=== PATIENT | female | born 1945 | race Caucasian/White ===

== ENCOUNTER → 2021-10-01 16:00 | Outpatient (CLI) | payer MEDICARE, OTHER, SELFPAY ==
[2021-10-01 19:41] LABS: Basophils # 0.1 K/mm3 (0-0.2); Basophils % 0.4 % (0.1-2.0); Eosinophils % 0.2 % (0.1-12.0); Hematocrit 42.2 % (37.0-47.0); Hemoglobin 13.7 g/dL (12.2-16.2); Lymphocytes % 16.6 % (10-50); Mean Corpuscular HGB Conc 32.5 g/dL (31.8-35.4); Mean Corpuscular Hemoglobin 34.8 pg (27.0-31.2); Mean Corpuscular Volume 107.1 fl (81-99); Mean Platelet Volume 9.8 fl (7.4-10.4); Monocytes # 0.4 K/mm3 (0.1-1.0); Neutrophils # 9.7 K/mm3 (1.8-7.8); Neutrophils % 79.8 % (37.0-80.0); Platelet Count 479 K/mm3 (142-424); Red Blood Count 3.94 M/mm3 (4.20-5.40); Red Cell Distribution Width 12.9 % (11.5-17.5); White Blood Count 12.2 K/mm3 (4.8-10.8)
[2021-10-01 20:08] LABS: Alanine Aminotransferase 22 U/L (12-78); Albumin Level 4.6 g/dl (3.5-5.0); Albumin/Globulin Ratio 1.5 (1.1-1.8); Alkaline Phosphatase 90 U/L (38-126); Anion Gap 14.6 mEq/L (5-15); Aspartate Amino Transferase 23 U/L (14-36); Bilirubin,Total 0.5 mg/dl (0.2-1.3); Blood Urea Nitrogen 14 mg/dl (7-17); Calcium 10.2 mg/dl (8.4-10.2); Carbon Dioxide 26 mmol/L (22.0-30.0); Chloride 105 mmol/L (98-107); Chol/HDL Ratio 4.2 (1-3.5); Cholesterol 265 mg/dl (140-200); Estimated Glomerular Filt Rate 120 ml/min (>60); GFR (African American) 145 ML/MIN (>60); Glucose 102 mg/dl (74-100); HDL Cholesterol 63 mg/dl (40-60); Potassium 4.6 mmoL/L (3.5-5.1); Sodium 141 mmol/L (136-145); Total Protein,Serum 7.6 g/dl (6.3-8.2); Triglycerides 217 mg/dl (30-150); VLDL Cholesterol 43 mg/dL (0-40)
[2021-10-01 20:18] LABS: Direct LDL Cholesterol 130.43 mg/dL (100-129)
[2021-10-01 20:24] LABS: 25-OH Vitamin D, Total 16.9 ng/mL (30-100)
[2021-10-01 20:39] LABS: Thyroid Stimulating Hormone 0.12 uIU/mL (0.465-4.68)
== END ==
PROVIDERS: Visit Provider Family Medicine
DX: E78.2 Mixed hyperlipidemia (principal); R53.83 Other fatigue; E55.9 Vitamin D deficiency, unspecified; M25.50 Pain in unspecified joint
CPT/HCPCS: 80053; 80061; 82306; 84443; 85025

== ENCOUNTER → 2022-06-26 01:00 | Outpatient (CLI) | payer MEDICARE, OTHER, SELFPAY ==
[2022-06-26 19:12] LABS: Amphetamine/Metha Screen,Urine Negative ng/ml (<1000)
[2022-06-26 19:13] LABS: Barbiturates Screen,Urine Negative ng/ml (<200); Benzodiazepines Screen,Urine Negative ng/ml (<200)
[2022-06-26 19:14] LABS: Cannabinoid Screen,Urine Negative ng/ml (<50)
[2022-06-26 19:15] LABS: Cocaine Screen,Urine Negative ng/ml (<300); Methadone Screen,Urine Negative ng/ml (<300)
[2022-06-26 19:16] LABS: Opiate Screen,Urine Negative ng/ml (<300)
[2022-06-26 19:17] LABS: Phencyclidine Screen,Urine Negative ng/ml (<25)
== END ==
PROVIDERS: PCP Family Medicine; Visit Provider Family Medicine
DX: Z79.899 Other long term (current) drug therapy (principal)
CPT/HCPCS: 80305

== ENCOUNTER 2023-07-03 21:12 | Outpatient (CLI) | payer MEDICARE, OTHER, SELFPAY ==
[2023-07-03 18:04] LABS: Amphetamine/Metha Screen,Urine Negative ng/ml (<1000)
[2023-07-03 18:05] LABS: Barbiturates Screen,Urine Negative ng/ml (<200)
[2023-07-03 18:06] LABS: Benzodiazepines Screen,Urine Positive ng/ml (<200); Cannabinoid Screen,Urine Negative ng/ml (<50)
[2023-07-03 18:07] LABS: Cocaine Screen,Urine Negative ng/ml (<300); Methadone Screen,Urine Negative ng/ml (<300)
[2023-07-03 18:08] LABS: Opiate Screen,Urine Negative ng/ml (<300)
[2023-07-03 18:09] LABS: Phencyclidine Screen,Urine Negative ng/ml (<25)
[2023-07-09 17:10] LABS: Gabapentin,Urine >800.0 ug/mL (.)
[2023-07-12 11:23] LABS: Alprazolam Negative (Cutoff=100); Benzodiazepines Positive ng/mL (Cutoff=100); Clonazepam Positive (.); Clonazepam Confirm 837 ng/mL (Cutoff=100); Flurazepam Negative (Cutoff=100); Lorazepam Negative (Cutoff=100); Midazolam Negative (Cutoff=100); Temazepam Positive (.); Triazolam Negative (Cutoff=100)
== END 2023-07-03 23:59 ==
LOC: LAB.DROPOF 21:13
PROVIDERS: PCP Family Medicine; Visit Provider Family Medicine
DX: M51.16 Intervertebral disc disorders with radiculopathy, lumbar region (principal); Z72.0 Tobacco use; Z79.899 Other long term (current) drug therapy
CPT/HCPCS: 80307; 80346

== ENCOUNTER 2024-09-14 14:45 | Outpatient (CLI) | payer MEDICARE, MEDICAID, SELFPAY ==
[2024-09-14 19:02] LABS: Alanine Aminotransferase 15 U/L (12-78); Albumin/Globulin Ratio 1.4 (1.1-1.8); Alkaline Phosphatase 86 U/L (38-126); Anion Gap 15.5 mEq/L (5-15); Aspartate Amino Transferase 21 U/L (14-36); Basophils # 0.1 K/mm3 (0-0.2); Basophils % 0.6 % (0.1-2.0); Bilirubin,Total 0.5 mg/dl (0.2-1.3); Blood Urea Nitrogen 18 mg/dl (7-17); Calcium 9.6 mg/dl (8.4-10.2); Carbon Dioxide 24 mmol/L (22.0-30.0); Chloride 107 mmol/L (98-107); Eosinophils # 0.1 K/mm3 (0.0-0.4); Eosinophils % 0.9 % (0.1-12.0); Estimated Glomerular Filt Rate 60 ml/min (>60); GFR (African American) 73 ML/MIN (>60); Globulin 2.9 g/dL (1.3-3.2); Glucose 90 mg/dl (74-100); Hematocrit 36.1 % (37.0-47.0); Hemoglobin 11.3 g/dL (12.2-16.2); Lymphocytes # 1.9 K/mm3 (0.7-4.5); Lymphocytes % 18.3 % (10-50); Mean Corpuscular HGB Conc 31.3 g/dL (31.8-35.4); Mean Corpuscular Hemoglobin 30.3 pg (27.0-31.2); Mean Corpuscular Volume 96.8 fl (81-99); Mean Platelet Volume 9.9 fl (7.4-10.4); Monocytes # 0.8 K/mm3 (0.1-1.0); Monocytes % 7.5 % (1.7-9.3); Neutrophils # 7.4 K/mm3 (1.8-7.8); Neutrophils % 72.5 % (37.0-80.0); Nucleated Red Blood Cells # 0 10^3/uL; Nucleated Red Blood Cells % 0 %; Platelet Count 451 K/mm3 (142-424); Potassium 4.5 mmoL/L (3.5-5.1); Red Blood Count 3.73 M/mm3 (4.20-5.40); Red Cell Distribution Width-SD 96.7 fL; Sodium 142 mmol/L (136-145); Total Protein,Serum 6.9 g/dl (6.3-8.2); White Blood Count 10.2 K/mm3 (4.8-10.8)
[2024-09-14 19:04] LABS: Red Cell Distribution Width 28.1 % (11.5-17.5)
[2024-09-14 19:27] LABS: Thyroid Stimulating Hormone 0.78 uIU/mL (0.465-4.68)
== END 2024-09-14 23:59 | disposition home or self-care (01) ==
LOC: LAB.DROPOF 09-15 12:19
PROVIDERS: PCP Family Medicine; Visit Provider Family Medicine
DX: R63.4 Abnormal weight loss (principal); Z68.1 Body mass index [BMI] 19.9 or less, adult
CPT/HCPCS: 80053; 84443; 85025